=== PATIENT | male | born 1965 | race Caucasian/White ===

== ENCOUNTER 2023-04-22 14:04 | Inpatient (IN) | payer OTHER, MEDICARE ==
[2023-04-22] VITALS (19 sets, daily range): BP systolic 102–150; BP diastolic 53–113; PULSE 87–104; RESP 18–30; TEMP 97.1–98.4; O2SAT 91–96
[~2023-04-22] VITALS: Ht 185.4 cm; Wt 130.6 kg
[~2023-04-22 14:04] MED LIST: ASPIRIN81 MG PO; AZITHROMYCIN500 MG PO; FUROSEMIDE40 MG PO; GLIMEPIRIDE2 MG PO; KEFLEX125 MG/5 M PO; LASIX40 MG PO; LEXAPRO10 MG PO; LORATADINE10 MG PO; LOSARTAN POTASS25 MG PO; MAGOX 400400 MG PO; METFORMIN HCL500 MG PO; METOPROLOL SUCC25 MG PO; METOPROLOL SUCC50 MG PO; MONTELUKAST SOD10 MG PO; NICOTINE PATCH1 EAC2 TOP; POTASSIUM CHLO20 ME1 PO; PREDNISONE20 MG PO; ROPINIROLE HCL1 MG PO; XARELTO20 MG PO
[2023-04-22] MEDS ORDERED: ALBUTEROL SULF 0.083% NEB SOLN 3 ML NEB NEB STA (14:25)
[2023-04-22] MEDS ORDERED: ALBUTEROL/IPRATROPIUM 3 ML NEB ONE (14:25)
[2023-04-22] MEDS ORDERED: METHYLPREDNISOLONE SOD SUCC 125 MG/2ML VIAL ONE (14:26)
[2023-04-22] MEDS ORDERED: SODIUM CHLORIDE 0.9% 1000ML 1,000 ML IV SCH (14:30)
[2023-04-22 14:31] LABS: BASOPHILS % 0.4 % (0.0-1.0); EOSINOPHILS % 0.4 % (0.0-6.0); HEMATOCRIT 52.5 % (38.2-49.6); HEMOGLOBIN 16.1 g/dL (14.0-18.0); LYMPHOCYTES # (AUTO) 1.7 (1.0-3.2); LYMPHOCYTES % 15.9 % (18.0-39.1); MEAN CORPUSCULAR HEMOGLOBIN 32.2 pg (28-32); MEAN CORPUSCULAR HGB CONC 30.7 g/dL (31-35); MONOCYTES # (AUTO) 1.1 (0.2-0.8); MONOCYTES % 10.1 % (4.4-11.3); NEUTROPHILS # (AUTO) 7.7 (2.1-6.9); NEUTROPHILS % 72.7 % (38.7-80.0); PLATELET COUNT 158 x10e3/uL (140-360); RED CELL DISTRIBUTION WIDTH 14.4 % (11.7-14.4); WHITE BLOOD COUNT 10.55 x10e3/uL (4.8-10.8)
[2023-04-22] MEDS ORDERED: DILTIAZEM HCL 5 MG/ML 5 ML VIAL IV STA (14:34)
[2023-04-22] MEDS ORDERED: MAGNESIUM SULFATE 2GM/50ML 50 ML IV ONE (14:45)
[2023-04-22] MEDS ORDERED: TERBUTALINE SULFATE 1 MG/ML VIAL SC ONE (14:45)
[2023-04-22 14:49] LABS: ABG PH 7.24 (7.35-7.45)
[2023-04-22 14:50] LABS: ALBUMIN 4.2 g/dL (3.5-5.0); ALBUMIN/GLOBULIN RATIO 1.6 (0.8-2.0); ANION GAP 18.2 mmol/L (8-16); BILIRUBIN,TOTAL 1.3 mg/dL (0.2-1.2); CALCIUM 9.3 mg/dL (8.4-10.2); CREATININE, SERUM 1.61 mg/dL (0.72-1.25); TOTAL PROTEIN 6.8 g/dL (6.5-8.1)
[2023-04-22 14:50] LABS: ABG HCO3 37 mmol/L (22-26); ABG PCO2 86 mmHg (35-45); ABG PO2 98 mmHg (80-105); ABG TCO2 39
[2023-04-22 14:51] LABS: POTASSIUM 5.2 mmol/L (3.5-5.1)
[2023-04-22] MEDS ORDERED: METHYLPREDNISOLONE SOD SUCC 125 MG/2ML VIAL IV ONE (15:00)
[2023-04-22] MEDS ORDERED: KETOROLAC TROMETHAMINE 30 MG/ML VIAL IV STA (15:08)
[2023-04-22] MEDS ORDERED: ACETAMINOPHEN 1000 MG/100 ML IV STA (15:08)
[2023-04-22] MEDS ORDERED: ACETAMINOPHEN 1000 MG/100 ML 100 ML IV ONE (15:10)
[2023-04-22] MEDS ORDERED: SODIUM CHLORIDE 0.9% 1000ML 1,000 ML ONE (15:11)
[2023-04-22] MEDS ORDERED: LACTATED RINGER'S 1,000 ML INJ ONE (15:15)
[2023-04-22] MEDS ORDERED: PIPERACILLIN/TAZOBACTAM 4.5 GM in SODIUM CHLORIDE 0.9% 100 ML IV ONE (15:15)
[2023-04-22] MEDS ORDERED: Vancomycin IV 1 GM in SODIUM CHLORIDE 0.9% 250ML 250 ML IV ONE (15:15)
[2023-04-22] MEDS ORDERED: ONDANSETRON HCL INJ 2MG/ML 2ML 2 MG/ML VIAL IV PRN (15:30)
[2023-04-22 15:32] LABS: ABG HCO3 35 mmol/L (22-26); ABG PCO2 80 mmHg (35-45); ABG PH 7.25 (7.35-7.45); ABG PO2 102 mmHg (80-105); ABG TCO2 37
[2023-04-22] MEDS ORDERED: AMIODARONE 900MG 500 ML IV SCH ×2 (16:00→22:15)
[2023-04-22] MEDS ORDERED: DEXTROSE 50% SYRINGE 50 ML IV PRN (16:15)
[2023-04-22] MEDS ORDERED: FUROSEMIDE INJ 10 MG/ML 4 ML VIAL IV ONE (16:15)
[2023-04-22] MEDS: INSULIN REGULAR, HUMAN 100 UNIT/1 ML SQ SCH ×2 (16:30→21:00)
[2023-04-22 16:36] LABS: COLOR,URINE YELLOW (YELLOW)
[2023-04-22 16:37] LABS: AMPHETAMINES SCREEN,URINE NEGATIVE (NEGATIVE); BENZODIAZEPINES SCREEN,URINE NEGATIVE (NEGATIVE); BILIRUBIN,URINE NEGATIVE (NEGATIVE); CANNABINOIDS SCREEN,URINE NEGATIVE (NEGATIVE); CLARITY,URINE CLOUDY (CLEAR); GLUCOSE, URINE NEGATIVE (NEGATIVE); KETONES,URINE NEGATIVE (NEGATIVE); LEUKOCYTE ESTERASE ,URINE NEGATIVE (NEGATIVE); METHADONE SCREEN, URINE NEGATIVE (NEGATIVE); NITRITE,URINE NEGATIVE (NEGATIVE); OPIATES SCREEN,URINE NEGATIVE (NEGATIVE); PH,URINE 5.5 (5 - 7); PHENCYCLIDINE SCREEN,URINE NEGATIVE (NEGATIVE); PROTEIN,URINE DIPSTICK TRACE (NEGATIVE); URINE UROBILINOGEN 0.2 mg/dL (0.2 - 1)
[2023-04-22 16:52] LABS: AMORPHOUS SEDIMENT,URINE MANY (FEW); BACTERIA,URINE FEW /HPF
[2023-04-22 17:47] LABS: CHOL/HDL RATIO 3.8 (3.9-4.7)
[2023-04-22] MEDS: LEVALBUTEROL HCL SOLN NEBU 0.63 MG/3 ML NEB INH SCH (19:38)
[2023-04-22] MEDS ORDERED: ROPINIROLE HCL 2 MG TAB PO ONE (21:45)
[2023-04-22] MEDS ORDERED: ROPINIROLE HCL 1 MG TAB ONE (22:35)
[2023-04-22] MEDS: METHYLPREDNISOLONE SOD SUCC 125 MG/2ML VIAL IV SCH (22:35)
[2023-04-23] VITALS (32 sets, daily range): BP systolic 103–157; BP diastolic 72–137; PULSE 41–131; RESP 18–37; TEMP 98–99.2; O2SAT 89–97
[2023-04-23] MEDS: LEVALBUTEROL HCL SOLN NEBU 0.63 MG/3 ML NEB INH SCH ×4 (01:10→18:54)
[2023-04-23] MEDS ORDERED: ATORVASTATIN CA20 MG PO (06:08)
[2023-04-23 06:31] LABS: BASOPHILS % 0.2 % (0.0-1.0); EOSINOPHILS % 0.2 % (0.0-6.0); HEMATOCRIT 49.6 % (38.2-49.6); HEMOGLOBIN 15.4 g/dL (14.0-18.0); LYMPHOCYTES # (AUTO) 0.8 (1.0-3.2); LYMPHOCYTES % 12.4 % (18.0-39.1); MEAN CORPUSCULAR HEMOGLOBIN 31.8 pg (28-32); MEAN CORPUSCULAR VOLUME 102.5 fL (81-99); MONOCYTES # (AUTO) 0.3 (0.2-0.8); MONOCYTES % 4.2 % (4.4-11.3); NEUTROPHILS # (AUTO) 5.1 (2.1-6.9); NEUTROPHILS % 82.3 % (38.7-80.0); PLATELET COUNT 129 x10e3/uL (140-360); RED BLOOD COUNT 4.84 x10e6/uL (4.3-5.7); RED CELL DISTRIBUTION WIDTH 14.4 % (11.7-14.4); WHITE BLOOD COUNT 6.14 x10e3/uL (4.8-10.8)
[2023-04-23 06:55] LABS: ANION GAP 15.6 mmol/L (8-16); CALCIUM 8.8 mg/dL (8.4-10.2); CREATININE, SERUM 1.22 mg/dL (0.72-1.25); POTASSIUM 4.6 mmol/L (3.5-5.1)
[2023-04-23] MEDS ORDERED: METOPROLOL SUCC25 MG PO (06:56)
[2023-04-23] MEDS: INSULIN REGULAR, HUMAN 100 UNIT/1 ML SQ SCH ×4 (08:03→23:04)
[2023-04-23] MEDS: AMIODARONE HCL 200 MG TAB PO SCH ×2 (08:04→21:52)
[2023-04-23] MEDS: METHYLPREDNISOLONE SOD SUCC 125 MG/2ML VIAL IV SCH ×2 (08:04→22:47)
[2023-04-23] MEDS ORDERED: RIVAROXABAN 20 MG TABLET PO SCH (09:00)
[2023-04-23 09:30] LABS: ABG PH 7.33 (7.35-7.45)
[2023-04-23 09:31] LABS: ABG HCO3 36 mmol/L (22-26); ABG PCO2 68 mmHg (35-45); ABG PO2 91 mmHg (80-105); ABG TCO2 38
[2023-04-23] MEDS: METOPROLOL TARTRATE INJ 1 MG/ML VIAL IV PRN (11:50)
[2023-04-23 13:49] LABS: BASOPHILS % 0.1 % (0.0-1.0); HEMATOCRIT 50.6 % (38.2-49.6); HEMOGLOBIN 15.5 g/dL (14.0-18.0); LYMPHOCYTES # (AUTO) 0.5 (1.0-3.2); LYMPHOCYTES % 5.8 % (18.0-39.1); MEAN CORPUSCULAR HEMOGLOBIN 32.4 pg (28-32); MEAN CORPUSCULAR HGB CONC 30.6 g/dL (31-35); MEAN CORPUSCULAR VOLUME 105.9 fL (81-99); MONOCYTES # (AUTO) 0.4 (0.2-0.8); MONOCYTES % 4.4 % (4.4-11.3); NEUTROPHILS # (AUTO) 8.1 (2.1-6.9); NEUTROPHILS % 89.3 % (38.7-80.0); PLATELET COUNT 140 x10e3/uL (140-360); RED BLOOD COUNT 4.78 x10e6/uL (4.3-5.7); RED CELL DISTRIBUTION WIDTH 14.3 % (11.7-14.4); WHITE BLOOD COUNT 9.08 x10e3/uL (4.8-10.8)
[2023-04-23] MEDS ORDERED: DILTIAZEM HCL ER 120 MG CAP PO SCH (16:45)
[2023-04-23] MEDS: DILTIAZEM HCL CR 120MG TAB PO SCH (16:59)
[2023-04-23] MEDS ORDERED: ROPINIROLE HCL 1 MG TAB PO ONE (21:15)
[2023-04-23] MEDS: Morphine 2mg Syringe 2 MG/ML SYR IV PRN (22:46)
[2023-04-24] VITALS (30 sets, daily range): BP systolic 103–146; BP diastolic 70–102; PULSE 28–127; RESP 18–32; TEMP 98.2–98.7; O2SAT 86–97
[2023-04-24] MEDS: LEVALBUTEROL HCL SOLN NEBU 0.63 MG/3 ML NEB INH SCH ×4 (00:47→19:34)
[2023-04-24] MEDS: Morphine 2mg Syringe 2 MG/ML SYR IV PRN ×3 (01:48→09:29)
[2023-04-24] MEDS ORDERED: IOPAMIDOL 370 MG/ML 100 ML INFUS..BTL INJ ONE (04:47)
[2023-04-24] MEDS: DILTIAZEM HCL CR 120MG TAB PO SCH ×2 (05:55→18:31)
[2023-04-24 06:16] LABS: BASOPHILS % 0.1 % (0.0-1.0); EOSINOPHILS # (AUTO) 0.2 (0.0-0.4); HEMATOCRIT 48.7 % (38.2-49.6); HEMOGLOBIN 14.8 g/dL (14.0-18.0); LYMPHOCYTES # (AUTO) 0.5 (1.0-3.2); LYMPHOCYTES % 4.6 % (18.0-39.1); MEAN CORPUSCULAR HEMOGLOBIN 32.5 pg (28-32); MEAN CORPUSCULAR HGB CONC 30.4 g/dL (31-35); MONOCYTES # (AUTO) 0.5 (0.2-0.8); MONOCYTES % 4.5 % (4.4-11.3); NEUTROPHILS % 88.3 % (38.7-80.0); PLATELET COUNT 143 x10e3/uL (140-360); RED BLOOD COUNT 4.55 x10e6/uL (4.3-5.7); RED CELL DISTRIBUTION WIDTH 14.5 % (11.7-14.4)
[2023-04-24 07:00] LABS: ALBUMIN 3.9 g/dL (3.5-5.0); ALBUMIN/GLOBULIN RATIO 1.4 (0.8-2.0); ANION GAP 14.3 mmol/L (8-16); CALCIUM 9.1 mg/dL (8.4-10.2); CREATININE, SERUM 1.2 mg/dL (0.72-1.25); TOTAL PROTEIN 6.7 g/dL (6.5-8.1)
[2023-04-24 07:01] LABS: POTASSIUM 5.3 mmol/L (3.5-5.1)
[2023-04-24] MEDS: INSULIN REGULAR, HUMAN 100 UNIT/1 ML SQ SCH ×4 (07:31→21:36)
[2023-04-24] MEDS: METHYLPREDNISOLONE SOD SUCC 125 MG/2ML VIAL IV SCH ×2 (09:09→20:28)
[2023-04-24] MEDS: ROPINIROLE HCL 1 MG TAB PO SCH ×3 (09:09→20:28)
[2023-04-24] MEDS: AMIODARONE HCL 200 MG TAB PO SCH ×2 (09:10→20:28)
[2023-04-24 09:29] LABS: LYMPHOCYTES % (MANUAL) 3 % (19-48); MONOCYTES % (MANUAL) 4 % (3.4-9.0); NEUTROPHILS % (MANUAL) 92 % (40-74); PLATELET ESTIMATE ADEQUATE; PLATELET MORPHOLOGY COMMENT NORMAL; RBC MORPHOLOGY COMMENT NORMAL; REACTIVE LYMPHOCYTES 1
[2023-04-24] MEDS: HYDROMORPHONE 1MG/1ML INJ IV PRN ×2 (11:58→16:35)
[2023-04-25] VITALS (36 sets, daily range): BP systolic 96–136; BP diastolic 61–103; PULSE 47–123; RESP 17–29; TEMP 97.7–98.4; O2SAT 90–98
[2023-04-25] MEDS: LEVALBUTEROL HCL SOLN NEBU 0.63 MG/3 ML NEB INH SCH ×4 (01:14→19:14)
[2023-04-25] MEDS: HYDROMORPHONE 1MG/1ML INJ IV PRN ×4 (01:49→20:37)
[2023-04-25] MEDS: DILTIAZEM HCL CR 120MG TAB PO SCH ×2 (05:50→17:55)
[2023-04-25 06:57] LABS: BASOPHILS % 0.1 % (0.0-1.0); EOSINOPHILS # (AUTO) 0.1 (0.0-0.4); EOSINOPHILS % 0.7 % (0.0-6.0); HEMATOCRIT 47.8 % (38.2-49.6); HEMOGLOBIN 14.3 g/dL (14.0-18.0); LYMPHOCYTES # (AUTO) 0.6 (1.0-3.2); LYMPHOCYTES % 5.5 % (18.0-39.1); MEAN CORPUSCULAR HEMOGLOBIN 32.5 pg (28-32); MEAN CORPUSCULAR HGB CONC 29.9 g/dL (31-35); MEAN CORPUSCULAR VOLUME 108.6 fL (81-99); MONOCYTES # (AUTO) 0.4 (0.2-0.8); MONOCYTES % 4.3 % (4.4-11.3); NEUTROPHILS % 88.8 % (38.7-80.0); PLATELET COUNT 145 x10e3/uL (140-360); RED CELL DISTRIBUTION WIDTH 14.3 % (11.7-14.4)
[2023-04-25] MEDS ORDERED: ACETAMINOPHEN/CODEINE 300MG - 30MG TAB PO PRN (07:00)
[2023-04-25 07:27] LABS: ALBUMIN 3.8 g/dL (3.5-5.0); ALBUMIN/GLOBULIN RATIO 1.7 (0.8-2.0); ANION GAP 13.4 mmol/L (8-16); BILIRUBIN,TOTAL 0.7 mg/dL (0.2-1.2); CALCIUM 9.3 mg/dL (8.4-10.2); CREATININE, SERUM 1.18 mg/dL (0.72-1.25)
[2023-04-25 07:30] LABS: POTASSIUM 5.4 mmol/L (3.5-5.1)
[2023-04-25] MEDS: INSULIN REGULAR, HUMAN 100 UNIT/1 ML SQ SCH ×4 (07:51→20:51)
[2023-04-25] MEDS: AMIODARONE HCL 200 MG TAB PO SCH ×2 (08:40→20:40)
[2023-04-25] MEDS: ROPINIROLE HCL 1 MG TAB PO SCH ×3 (08:40→20:37)
[2023-04-25] MEDS: METHYLPREDNISOLONE SOD SUCC 125 MG/2ML VIAL IV SCH ×2 (08:40→20:37)
[2023-04-25] MEDS: PHENAZOPYRIDINE HCL 100 MG TAB PO PRN ×2 (09:54→20:50)
[2023-04-25] MEDS: METOPROLOL TARTRATE INJ 1 MG/ML VIAL IV PRN (12:17)
[2023-04-25] MEDS: DEXMEDETOMIDINE 400MCG/NS100ML 100 ML IV PRN (13:17)
[2023-04-26] VITALS (45 sets, daily range): BP systolic 91–146; BP diastolic 49–132; PULSE 53–140; RESP 9–29; TEMP 97.6–98.5; O2SAT 94–98
[2023-04-26] MEDS: DEXMEDETOMIDINE 400MCG/NS100ML 100 ML IV PRN ×3 (00:32→19:21)
[2023-04-26] MEDS: HYDROMORPHONE 1MG/1ML INJ IV PRN ×2 (00:32→05:53)
[2023-04-26] MEDS: LEVALBUTEROL HCL SOLN NEBU 0.63 MG/3 ML NEB INH SCH ×4 (01:11→19:33)
[2023-04-26] MEDS: DILTIAZEM HCL CR 120MG TAB PO SCH ×2 (05:53→17:41)
[2023-04-26 07:38] LABS: BASOPHILS % 0.1 % (0.0-1.0); EOSINOPHILS % 0.5 % (0.0-6.0); HEMATOCRIT 48.5 % (38.2-49.6); HEMOGLOBIN 14.6 g/dL (14.0-18.0); LYMPHOCYTES # (AUTO) 0.6 (1.0-3.2); LYMPHOCYTES % 7.6 % (18.0-39.1); MEAN CORPUSCULAR HEMOGLOBIN 32.2 pg (28-32); MEAN CORPUSCULAR HGB CONC 30.1 g/dL (31-35); MEAN CORPUSCULAR VOLUME 107.1 fL (81-99); MONOCYTES # (AUTO) 0.4 (0.2-0.8); MONOCYTES % 4.8 % (4.4-11.3); NEUTROPHILS # (AUTO) 6.9 (2.1-6.9); NEUTROPHILS % 86.7 % (38.7-80.0); PLATELET COUNT 133 x10e3/uL (140-360); RED BLOOD COUNT 4.53 x10e6/uL (4.3-5.7); RED CELL DISTRIBUTION WIDTH 13.7 % (11.7-14.4); WHITE BLOOD COUNT 7.94 x10e3/uL (4.8-10.8)
[2023-04-26 08:01] LABS: ANION GAP 13.4 mmol/L (8-16); CALCIUM 8.6 mg/dL (8.4-10.2); CREATININE, SERUM 1.09 mg/dL (0.72-1.25)
[2023-04-26 08:03] LABS: POTASSIUM 5.4 mmol/L (3.5-5.1)
[2023-04-26] MEDS: INSULIN REGULAR, HUMAN 100 UNIT/1 ML SQ SCH ×4 (08:17→20:48)
[2023-04-26] MEDS: ROPINIROLE HCL 1 MG TAB PO SCH ×3 (08:41→19:43)
[2023-04-26] MEDS: AMIODARONE HCL 200 MG TAB PO SCH ×2 (08:41→19:44)
[2023-04-26] MEDS: HYDROCODONE/APAP 7.5MG-325MG 1 EA TAB PO PRN ×2 (08:42→20:56)
[2023-04-26] MEDS: METHYLPREDNISOLONE SOD SUCC 125 MG/2ML VIAL IV SCH ×2 (08:43→19:43)
[2023-04-26] MEDS: PHENAZOPYRIDINE HCL 100 MG TAB PO PRN (22:42)
[2023-04-27] VITALS (21 sets, daily range): BP systolic 105–146; BP diastolic 64–100; PULSE 52–106; RESP 16–27; TEMP 98.1–99.1; O2SAT 87–99
[2023-04-27] MEDS: LEVALBUTEROL HCL SOLN NEBU 0.63 MG/3 ML NEB INH SCH ×4 (01:06→19:43)
[2023-04-27] MEDS: DILTIAZEM HCL CR 120MG TAB PO SCH (05:35)
[2023-04-27] MEDS: HYDROCODONE/APAP 7.5MG-325MG 1 EA TAB PO PRN ×2 (05:49→13:19)
[2023-04-27] MEDS: METHYLPREDNISOLONE SOD SUCC 125 MG/2ML VIAL IV SCH ×2 (08:28→20:49)
[2023-04-27] MEDS: ROPINIROLE HCL 1 MG TAB PO SCH ×3 (08:28→20:50)
[2023-04-27] MEDS: AMIODARONE HCL 200 MG TAB PO SCH (08:28)
[2023-04-27] MEDS: ISOSORBIDE MONONITRATE 30 MG TAB CR PO SCH (08:29)
[2023-04-27] MEDS: INSULIN REGULAR, HUMAN 100 UNIT/1 ML SQ SCH ×4 (08:32→20:51)
[2023-04-27] MEDS: INSULIN GLARGINE 100 UNITS/ML VIAL SQ SCH (08:36)
[2023-04-27] MEDS ORDERED: INSULIN GLARGINE 100 UNITS/ML VIAL SQ SCH (09:00)
[2023-04-27] MEDS: DEXMEDETOMIDINE 400MCG/NS100ML 100 ML IV PRN (10:06)
[2023-04-27] MEDS ORDERED: DOBUtamine HCL 500MG/D5W 250ML 250 ML IV SCH (11:00)
[2023-04-27] MEDS ORDERED: ATROPINE SULFATE 0.1 MG/ML 10ML SYR ONE (11:03)
[2023-04-27] MEDS ORDERED: ATROPINE SULFATE 1 MG/ML VIAL IV ONE (11:30)
[2023-04-28] VITALS (30 sets, daily range): BP systolic 107–179; BP diastolic 47–103; PULSE 85–127; RESP 19–25; TEMP 97.7–99.1; O2SAT 90–98
[2023-04-28] MEDS: LEVALBUTEROL HCL SOLN NEBU 0.63 MG/3 ML NEB INH SCH ×4 (01:02→19:35)
[2023-04-28] MEDS: HYDROCODONE/APAP 7.5MG-325MG 1 EA TAB PO PRN ×4 (03:05→23:14)
[2023-04-28] MEDS: PHENAZOPYRIDINE HCL 100 MG TAB PO PRN (03:05)
[2023-04-28 06:39] LABS: BASOPHILS % 0.1 % (0.0-1.0); EOSINOPHILS # (AUTO) 0.1 (0.0-0.4); EOSINOPHILS % 0.7 % (0.0-6.0); HEMATOCRIT 46.2 % (38.2-49.6); HEMOGLOBIN 14.4 g/dL (14.0-18.0); LYMPHOCYTES # (AUTO) 0.7 (1.0-3.2); LYMPHOCYTES % 9.5 % (18.0-39.1); MEAN CORPUSCULAR HEMOGLOBIN 32.3 pg (28-32); MEAN CORPUSCULAR HGB CONC 31.2 g/dL (31-35); MEAN CORPUSCULAR VOLUME 103.6 fL (81-99); MONOCYTES # (AUTO) 0.3 (0.2-0.8); MONOCYTES % 3.4 % (4.4-11.3); NEUTROPHILS # (AUTO) 6.3 (2.1-6.9); PLATELET COUNT 117 x10e3/uL (140-360); RED BLOOD COUNT 4.46 x10e6/uL (4.3-5.7); RED CELL DISTRIBUTION WIDTH 13.3 % (11.7-14.4); WHITE BLOOD COUNT 7.36 x10e3/uL (4.8-10.8)
[2023-04-28 07:10] LABS: ALBUMIN 3.3 g/dL (3.5-5.0); ALBUMIN/GLOBULIN RATIO 1.4 (0.8-2.0); ANION GAP 13.8 mmol/L (8-16); BILIRUBIN,TOTAL 0.8 mg/dL (0.2-1.2); CALCIUM 8.4 mg/dL (8.4-10.2); CREATININE, SERUM 1.03 mg/dL (0.72-1.25); POTASSIUM 4.8 mmol/L (3.5-5.1); TOTAL PROTEIN 5.6 g/dL (6.5-8.1)
[2023-04-28] MEDS: ROPINIROLE HCL 1 MG TAB PO SCH ×3 (08:25→21:07)
[2023-04-28] MEDS: METHYLPREDNISOLONE SOD SUCC 125 MG/2ML VIAL IV SCH ×2 (08:25→21:06)
[2023-04-28] MEDS: ISOSORBIDE MONONITRATE 30 MG TAB CR PO SCH (08:26)
[2023-04-28] MEDS: INSULIN GLARGINE 100 UNITS/ML VIAL SQ SCH (08:30)
[2023-04-28] MEDS: INSULIN REGULAR, HUMAN 100 UNIT/1 ML SQ SCH ×4 (08:31→21:11)
[2023-04-29] VITALS (29 sets, daily range): BP systolic 113–152; BP diastolic 69–114; PULSE 78–120; RESP 18–32; TEMP 97.5–98.4; O2SAT 90–98
[2023-04-29] MEDS: LEVALBUTEROL HCL SOLN NEBU 0.63 MG/3 ML NEB INH SCH ×5 (00:49→19:33)
[2023-04-29] MEDS: HYDROCODONE/APAP 7.5MG-325MG 1 EA TAB PO PRN ×3 (07:14→20:51)
[2023-04-29] MEDS: INSULIN REGULAR, HUMAN 100 UNIT/1 ML SQ SCH ×4 (07:38→21:00)
[2023-04-29] MEDS: METHYLPREDNISOLONE SOD SUCC 125 MG/2ML VIAL IV SCH (08:25)
[2023-04-29] MEDS: ROPINIROLE HCL 1 MG TAB PO SCH ×3 (08:25→20:51)
[2023-04-29] MEDS: ISOSORBIDE MONONITRATE 30 MG TAB CR PO SCH (08:26)
[2023-04-29] MEDS ORDERED: INSULIN GLARGINE 100 UNITS/ML VIAL SQ SCH (09:00)
[2023-04-29] MEDS: HEPARIN SOD (PORCINE) 5,000 UNIT/ML VIAL SC SCH ×2 (09:43→20:52)
[2023-04-30] VITALS (18 sets, daily range): BP systolic 121–174; BP diastolic 72–142; PULSE 59–173; RESP 14–25; TEMP 97.7–98; O2SAT 83–98
[2023-04-30] MEDS: LEVALBUTEROL HCL SOLN NEBU 0.63 MG/3 ML NEB INH SCH ×4 (01:23→19:41)
[2023-04-30] MEDS: HYDROCODONE/APAP 7.5MG-325MG 1 EA TAB PO PRN ×4 (03:19→23:55)
[2023-04-30] MEDS: ROPINIROLE HCL 1 MG TAB PO SCH ×3 (08:19→21:42)
[2023-04-30] MEDS: ISOSORBIDE MONONITRATE 30 MG TAB CR PO SCH (08:22)
[2023-04-30] MEDS: HEPARIN SOD (PORCINE) 5,000 UNIT/ML VIAL SC SCH ×2 (08:24→21:50)
[2023-04-30] MEDS: INSULIN GLARGINE 100 UNITS/ML VIAL SQ SCH (08:25)
[2023-04-30] MEDS: INSULIN REGULAR, HUMAN 100 UNIT/1 ML SQ SCH ×4 (08:25→21:50)
[2023-04-30] MEDS: DILTIAZEM HCL ER 120 MG CAP PO SCH (11:59)
[2023-05-01] VITALS (12 sets, daily range): BP systolic 117–133; BP diastolic 68–98; PULSE 74–100; RESP 18–24; TEMP 97.3–98.3; O2SAT 88–98
[2023-05-01] MEDS: LEVALBUTEROL HCL SOLN NEBU 0.63 MG/3 ML NEB INH SCH ×4 (01:25→19:16)
[2023-05-01] MEDS: HYDROCODONE/APAP 7.5MG-325MG 1 EA TAB PO PRN ×3 (05:48→18:22)
[2023-05-01 06:15] LABS: EOSINOPHILS # (AUTO) 0.1 (0.0-0.4); EOSINOPHILS % 1.8 % (0.0-6.0); HEMATOCRIT 47.2 % (38.2-49.6); HEMOGLOBIN 14.4 g/dL (14.0-18.0); LYMPHOCYTES # (AUTO) 1.5 (1.0-3.2); MEAN CORPUSCULAR HEMOGLOBIN 31.9 pg (28-32); MEAN CORPUSCULAR HGB CONC 30.5 g/dL (31-35); MEAN CORPUSCULAR VOLUME 104.7 fL (81-99); MONOCYTES # (AUTO) 0.6 (0.2-0.8); NEUTROPHILS # (AUTO) 3.8 (2.1-6.9); NEUTROPHILS % 62.7 % (38.7-80.0); PLATELET COUNT 107 x10e3/uL (140-360); RED BLOOD COUNT 4.51 x10e6/uL (4.3-5.7); RED CELL DISTRIBUTION WIDTH 13.2 % (11.7-14.4); WHITE BLOOD COUNT 6.03 x10e3/uL (4.8-10.8)
[2023-05-01 06:41] LABS: ALBUMIN 3.1 g/dL (3.5-5.0); ALBUMIN/GLOBULIN RATIO 1.3 (0.8-2.0); ANION GAP 8.9 mmol/L (8-16); BILIRUBIN,TOTAL 1.9 mg/dL (0.2-1.2); CALCIUM 8.5 mg/dL (8.4-10.2); CREATININE, SERUM 0.83 mg/dL (0.72-1.25); POTASSIUM 3.9 mmol/L (3.5-5.1); TOTAL PROTEIN 5.5 g/dL (6.5-8.1)
[2023-05-01] MEDS: ISOSORBIDE MONONITRATE 30 MG TAB CR PO SCH (08:44)
[2023-05-01] MEDS: DILTIAZEM HCL ER 120 MG CAP PO SCH (08:45)
[2023-05-01] MEDS: HEPARIN SOD (PORCINE) 5,000 UNIT/ML VIAL SC SCH ×2 (08:47→22:14)
[2023-05-01] MEDS: INSULIN GLARGINE 100 UNITS/ML VIAL SQ SCH (08:48)
[2023-05-01] MEDS: ROPINIROLE HCL 1 MG TAB PO SCH ×3 (09:09→22:07)
[2023-05-01] MEDS: INSULIN REGULAR, HUMAN 100 UNIT/1 ML SQ SCH ×4 (09:12→20:42)
[2023-05-01] MEDS ORDERED: ONDANSETRON HCL 4 MG ORAL DISINTEGRATING TAB PO PRN (09:45)
[2023-05-01] MEDS: ACETAZOLAMIDE 250 MG TAB PO SCH (16:19)
[2023-05-02] VITALS (11 sets, daily range): BP systolic 107–124; BP diastolic 64–88; PULSE 65–93; RESP 18–20; TEMP 97.3–98.2; O2SAT 88–98
[2023-05-02] MEDS: LEVALBUTEROL HCL SOLN NEBU 0.63 MG/3 ML NEB INH SCH ×5 (03:39→19:55)
[2023-05-02] MEDS: INSULIN REGULAR, HUMAN 100 UNIT/1 ML SQ SCH ×4 (07:30→20:48)
[2023-05-02] MEDS: ROPINIROLE HCL 1 MG TAB PO SCH ×3 (08:54→21:10)
[2023-05-02] MEDS: ISOSORBIDE MONONITRATE 30 MG TAB CR PO SCH (08:55)
[2023-05-02] MEDS: ACETAZOLAMIDE 250 MG TAB PO SCH ×2 (08:56→16:32)
[2023-05-02] MEDS: DILTIAZEM HCL ER 120 MG CAP PO SCH (08:56)
[2023-05-02] MEDS: HYDROCODONE/APAP 7.5MG-325MG 1 EA TAB PO PRN ×2 (08:56→16:50)
[2023-05-02] MEDS: HEPARIN SOD (PORCINE) 5,000 UNIT/ML VIAL SC SCH ×2 (08:57→21:31)
[2023-05-02] MEDS: INSULIN GLARGINE 100 UNITS/ML VIAL SQ SCH (08:58)
[2023-05-03] VITALS (8 sets, daily range): BP systolic 99–136; BP diastolic 58–78; PULSE 64–86; RESP 18–22; TEMP 97.5–98.6; O2SAT 90–100
[2023-05-03] MEDS: LEVALBUTEROL HCL SOLN NEBU 0.63 MG/3 ML NEB INH SCH ×3 (00:05→14:01)
[2023-05-03 06:05] LABS: EOSINOPHILS # (AUTO) 0.2 (0.0-0.4); EOSINOPHILS % 3.3 % (0.0-6.0); HEMATOCRIT 45.8 % (38.2-49.6); HEMOGLOBIN 14.4 g/dL (14.0-18.0); LYMPHOCYTES # (AUTO) 1.4 (1.0-3.2); LYMPHOCYTES % 26.3 % (18.0-39.1); MEAN CORPUSCULAR HEMOGLOBIN 31.5 pg (28-32); MEAN CORPUSCULAR HGB CONC 31.4 g/dL (31-35); MEAN CORPUSCULAR VOLUME 100.2 fL (81-99); MONOCYTES # (AUTO) 0.5 (0.2-0.8); MONOCYTES % 9.2 % (4.4-11.3); NEUTROPHILS # (AUTO) 3.2 (2.1-6.9); NEUTROPHILS % 60.6 % (38.7-80.0); RED BLOOD COUNT 4.57 x10e6/uL (4.3-5.7); RED CELL DISTRIBUTION WIDTH 13.1 % (11.7-14.4)
[2023-05-03 06:19] LABS: PLATELET COUNT 99 x10e3/uL (140-360)
[2023-05-03 06:31] LABS: ANION GAP 8.9 mmol/L (8-16); CALCIUM 8.5 mg/dL (8.4-10.2); CREATININE, SERUM 0.83 mg/dL (0.72-1.25); POTASSIUM 3.9 mmol/L (3.5-5.1)
[2023-05-03] MEDS: INSULIN REGULAR, HUMAN 100 UNIT/1 ML SQ SCH ×3 (07:30→16:30)
[2023-05-03] MEDS: INSULIN GLARGINE 100 UNITS/ML VIAL SQ SCH (08:03)
[2023-05-03] MEDS: ROPINIROLE HCL 1 MG TAB PO SCH ×2 (08:05→15:47)
[2023-05-03] MEDS: ACETAZOLAMIDE 250 MG TAB PO SCH ×2 (08:05→17:00)
[2023-05-03] MEDS: ISOSORBIDE MONONITRATE 30 MG TAB CR PO SCH (08:05)
[2023-05-03] MEDS: DILTIAZEM HCL ER 120 MG CAP PO SCH (08:06)
[2023-05-03] MEDS: HYDROCODONE/APAP 7.5MG-325MG 1 EA TAB PO PRN (08:07)
[2023-05-03] MEDS: HEPARIN SOD (PORCINE) 5,000 UNIT/ML VIAL SC SCH (08:08)
== END 2023-05-03 18:58 | disposition home or self-care (01) | DRG 190 ==
LOC: ER 14:25 → ERHOLD 15:49 → ICU 18:23 → MED/SURG2 04-30 16:29
PROVIDERS: ADMIT Internal Medicine; ATTEND Internal Medicine
PROC: 4A033R1 Measurement of Arterial Saturation, Peripheral, Percutaneous Approach (ICD-10-PCS; principal; 2023-04-22)
PROC: 5A09457 Assistance with Respiratory Ventilation, 24-96 Consecutive Hours, Continuous Positive Airway Pressure (ICD-10-PCS; 2023-04-22)
DX: J44.1 Chronic obstructive pulmonary disease with (acute) exacerbation (principal); I50.43 Acute on chronic combined systolic (congestive) and diastolic (congestive) heart failure; J96.22 Acute and chronic respiratory failure with hypercapnia; N17.9 Acute kidney failure, unspecified; I42.9 Cardiomyopathy, unspecified; E66.2 Morbid (severe) obesity with alveolar hypoventilation; E87.3 Alkalosis; D68.32 Hemorrhagic disorder due to extrinsic circulating anticoagulants; I48.0 Paroxysmal atrial fibrillation; R31.0 Gross hematuria; T45.515A Adverse effect of anticoagulants, initial encounter; I11.0 Hypertensive heart disease with heart failure; D69.6 Thrombocytopenia, unspecified; I27.20 Pulmonary hypertension, unspecified; E87.5 Hyperkalemia; E11.65 Type 2 diabetes mellitus with hyperglycemia; K42.9 Umbilical hernia without obstruction or gangrene; Z99.81 Dependence on supplemental oxygen; F17.210 Nicotine dependence, cigarettes, uncomplicated; Z91.141 Patient's other noncompliance with medication regimen due to financial hardship; Y92.89 Other specified places as the place of occurrence of the external cause; Z86.19 Personal history of other infectious and parasitic diseases; Z20.822 Contact with and (suspected) exposure to COVID-19; Z68.38 Body mass index [BMI] 38.0-38.9, adult; Z11.52 Encounter for screening for COVID-19; B19.20 Unspecified viral hepatitis C without hepatic coma; N40.1 Benign prostatic hyperplasia with lower urinary tract symptoms; R33.8 Other retention of urine
CPT/HCPCS: 36415; 36600; 51700; 71045; 74177; 80048; 80053; 80061; 80307; 80320; 81001; 82805; 82948; 83036; 83605; 85025; 87040; 87086; 87400; 87420; 93005; 93306; 94640; 94660; 94799; 96372; 99252; 99284; J1170; J1250; J1644; J1815; J1940; J2270; J2405; J2543; J2930; J3475; J7030; J7050; Q9967; U0002